=== PATIENT | male | born 1990 | race Caucasian/White ===

== ENCOUNTER 2017-08-20 07:35 | Emergency (ER) | payer MEDICAID | END 2017-08-20 09:00 | disposition home or self-care (01) | LOC: FTE 07:35 | DX: J02.9 Acute pharyngitis, unspecified (principal) | CPT/HCPCS: 99284; Z7502 ==

== ENCOUNTER 2017-09-05 09:53 | Emergency (ER) | payer MEDICAID | END 2017-09-05 10:53 | disposition home or self-care (01) | LOC: E/R 09:53 | DX: K13.79 Other lesions of oral mucosa (principal) | CPT/HCPCS: 99283; Z7502 ==

== ENCOUNTER 2018-12-15 23:33 | Emergency (ER) | payer SELFPAY, MEDICAID ==
[2018-12-16] MEDS: ACETAMINOPHEN 325 MG TAB PO (01:54)
== END 2018-12-16 04:55 | disposition home or self-care (01) ==
LOC: FTE 23:33
DX: S02.2XXA Fracture of nasal bones, initial encounter for closed fracture (principal); S00.01XA Abrasion of scalp, initial encounter; Y08.89XA Assault by other specified means, initial encounter
CPT/HCPCS: 70486; 99284-25